=== PATIENT | female | born 1980 | race Caucasian/White ===

== ENCOUNTER 2016-10-01 21:11 | Observation (INO) | payer BC ==
[2016-10-01 23:44] LABS: ALANINE AMINOTRANSFERASE 53 Units/L (12-78); ALBUMIN 4.4 g/dL (3.4-5.0); ALKALINE PHOSPHATASE 46 Units/L (46-116); ASPARTATE AMINO TRANSFERASE 61 Units/L (15-37); BLOOD UREA NITROGEN 19 mg/dL (7-18); CARBON DIOXIDE 24.6 mmol/L (21-32); CHLORIDE 105 mmol/L (98-107); CREATININE 0.94 mg/dL (0.55-1.02); GLUCOSE 100 mg/dL (65-99); MAGNESIUM 2.2 mg/dL (1.7-2.9); SODIUM 141 mmol/L (136-145); TOTAL PROTEIN 7.8 g/dL (6.4-8.2); eGFR BLACK RACES > 60 (>60); eGFR NON BLACK RACES > 60 (>60)
[2016-10-01] MEDS: PROTONIX INJ 40 MG VIAL IVP SCH (23:50)
[2016-10-01] MEDS: NS 1000 ML 1,000 ML IV SCH (23:52)
[2016-10-01 23:57] LABS: CREATINE KINASE MB < 1.0 ng/mL (0-4.0); TROPONIN I < 0.02 ng/mL (0-1.5)
[2016-10-01 23:58] LABS: CKMB % 0.1 % (<4); CREATINE KINASE 2050 Units/L (26-192)
[2016-10-02 00:15] VITALS: BMI 29.1
[2016-10-02 06:15] LABS: BASOPHILS # (AUTO) 0.1 X10^3/uL (0.0-0.1); BASOPHILS % (AUTO) 1.1 % (0.2-1.0); EOSINOPHILS # (AUTO) 0.4 x10^3/uL (0.0-0.2); EOSINOPHILS % (AUTO) 6.1 % (0.9-2.9); HEMATOCRIT 35.4 % (36.0-47.0); HEMOGLOBIN 11.5 g/dL (12.0-16.0); LYMPHOCYTES # (AUTO) 2.2 X10^3/uL (1.3-2.9); LYMPHOCYTES % (AUTO) 35.1 % (21.0-51.0); MEAN CORPUSCULAR HEMOGLOBIN 25.3 pg (27.0-34.0); MEAN CORPUSCULAR HGB CONC 32.4 g/dL (33.0-35.0); MEAN CORPUSCULAR VOLUME 78.1 fL (80.0-100.0); MEAN PLATELET VOLUME 8.3 fL (7.4-11.0); MONOCYTES # (AUTO) 0.6 x10^3/uL (0.3-0.8); MONOCYTES % (AUTO) 9.2 % (0.0-13.0); NEUTROPHILS % (AUTO) 48.5 % (42.0-75.0); PLATELET COUNT 298 X10^3/uL (150.0-450.0); RED BLOOD COUNT 4.53 X10^6/uL (3.5-5.4); RED CELL DISTRIBUTION WIDTH 15.9 % (11.6-16.5); WHITE BLOOD COUNT 6.2 X10^3/uL (3.6-10.0)
--- NOTE | 2016-10-02 06:20 | RAD ---
HISTORY: Chest pain, shortness of breath Study: Chest one view Comparison: None Findings: The heart is within normal limits in size. The rodrigo are normal. The lungs are well inflated and free of acute alveolar infiltrates. There is a 1.1 x 1.6 centimeter nodular density in the right upper l obe for which further evaluation with chest CT is recommended. Neoplasm cannot be excluded. The erlin tyler of the lung tan are clear. The bony thorax is unremarkable. IMPRESSION: 1.1 x 1.6 centimeter right upper lobe nodule for which further evaluation with chest CT is recommend ed. Reported By:
[2016-10-02 06:37] LABS: BLOOD UREA NITROGEN 15 mg/dL (7-18); CALCIUM 8.5 mg/dL (8.5-10.1); CARBON DIOXIDE 25.5 mmol/L (21-32); CHLORIDE 108 mmol/L (98-107); CHOL/HDL RATIO 4.4 (0.0-5.0); CHOLESTEROL 208 mg/dL (0-200); CREATINE KINASE MB < 1.0 ng/mL (0-4.0); CREATININE 0.91 mg/dL (0.55-1.02); GLUCOSE 87 mg/dL (65-99); HDL CHOLESTEROL 47 mg/dL (40-60); SODIUM 143 mmol/L (136-145); TRIGLYCERIDES 71 mg/dL (0-150); TROPONIN I < 0.02 ng/mL (0-1.5); eGFR BLACK RACES > 60 (>60); eGFR NON BLACK RACES > 60 (>60)
[2016-10-02 06:41] LABS: CKMB % 0.1 % (<4); CREATINE KINASE 1442 Units/L (26-192)
[2016-10-02 07:16] LABS: HYPOCHROMASIA SLIGHT; PLATELET MORPHOLOGY COMMENT NORMAL (NORMAL)
[2016-10-02] MEDS: PROTONIX INJ 40 MG VIAL IVP SCH (08:42)
[2016-10-02] MEDS ORDERED: NS 100 ML IV 100 ML IV ONE (09:26)
--- NOTE | 2016-10-02 10:38 | CT ---
HISTORY: Chest pain, pulmonary AVM Study: CTA chest with contrast for pulmonary embolus Comparison: Plain films October 01, 2016 Technique: Axial post-contrast images with coronal, sagittal, and 3 dimensional maximum intensity pr ojection images obtained and evaluated. Dose reduction procedures were use with MA/kv adjusted for b jose size. Findings: There is no evidence for acute pulmonary thromboembolic disease. Examination of the mediastinum demo nstrated no evidence for mediastinal masses, lymphadenopathy, or hilar lymphadenopathy. No pleural e ffusions are identified. No chest wall or axillary abnormality is identified. Those portions of the upper abdominal organs visualized were within normal limits. Best visualized on series 5 axial image s 31 through 35 and series 12 coronal images 52 through 62 and sagittal series 13 image is 82 throug h 90 is a branching 2.8 by 1.4 by 1.4 centimeter mass (measured on series 5, image 34 and series 12, image 56) this corresponds to the lesion noted on the recent chest x-ray. The branching configurati on suggests the possibility of a bronchocoele, however, endobronchial neoplasm certainly cannot be e xcluded. The lesion does not enhance and is not definitely suggestive of an AVM as suggested in the history given however a thrombosed AVM could not be entirely excluded. Infection such as aspergillos is is also possible. Further evaluation could include a bronchoscopy and PET-CT. No other parenchyma l nodules, masses, alveolar infiltrates, bronchiectasis, or peribronchial thickening is identified. IMPRESSION: 2.8 x 1.4 x 1.4 centimeter branching mass lesion in the right upper lobe as described. This correspo nds to the recent plain film findings. Some differential diagnostic possibilities and recommendation s for further evaluation given above No evidence for acute pulmonary thromboembolic disease Reported By:
[2016-10-02 11:00] LABS: CREATINE KINASE MB < 1.0 ng/mL (0-4.0); TROPONIN I < 0.02 ng/mL (0-1.5)
[2016-10-02 11:03] LABS: CKMB % 0.1 % (<4); CREATINE KINASE 1271 Units/L (26-192)
[2016-10-02] MEDS: NS 1000 ML 1,000 ML IV SCH (12:42)
--- NOTE | 2016-10-02 13:06 | DR.H&P ---
H&P - History & Physical for Day of: H&P Date: 10/02/16 - Chief Complaint Chief Complaint: Chest pain and SOB - Allergies Allergies/Adverse Reactions: Allergies Allergy/AdvReac Type Severity Reaction Status Date / Time No Known Drug Allergy Allergy Verified 10/01/16 23:22 - History of Present Illness History of Present Illness: The patient is a 36yo WF who has had complaints of chest pain 8/10 x 2 days. Is having SOB as well. States pain started during night. 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 Is not on OCP. - Past Medical History Additional Medical History: Pulmonary AVM - Family History Family Medical History: Diabetes Mellitus, Cancer, [place], Heart Failure, Hypertension - Social History Does patient currently use any type of tobacco product: No Have you used tobacco products in the last 12 months: No Type of Tobacco Use: None How many years tobacco product used: 25 Alcohol Use: None Drug Use: None - Medications Home Medications: Metoprolol Succinate Ext Rel [Toprol Xl] 50 mg PO DAILY 10/02/16 [History Confirmed 10/02/16] - Review of Systems Constitutional: No Symptoms Reported Eyes: No Symptoms Reported ENT: No Symptoms Reported Respiratory: Shortness of Breath, SOB with Excertion Cardiovascular: Chest Pain Gastrointestinal: No Symptoms Reported Genitourinary: No Symptoms Reported Musculoskeletal: No Symptoms Reported Skin: No Symptoms Reported Neurological: No Symptoms Reported - Physical Exam Vital Signs: Temperature 97.0 F Pulse Rate [Right Radial] 72 Respiratory Rate 18 Blood Pressure [Left Arm] 104/63 Blood Pressure [Right Arm] 131/79 O2 Sat by Pulse Oximetry 95 Oriented: Normal Eyes: Normal Ear: Normal Nose: Normal Throat: Normal Respiratory: Clear Throughout Cardiovascular: Normal : Normal Auscultation: Bowel Sounds: Normal Palpation: Normal Tenderness: Normal Skin: Normal Musculoskeletal: Normal Psychiatric: Normal Mood Description: Calm Affect: Normal Speech Pattern: Clear - Assessment/Plan (1) Chest pain Qualifiers: Chest pain type: C Ischemic chest pain type: I Status: Acute Plan: Cardiac Enzymes, EKGs, CTA of Chest. See EMR for orders. (2) SOB (shortness of breath) Status: Acute Plan: Cardiac Enzymes, EKGs, CTA of Chest. See EMR for orders. (3) Pulmonary arteriovenous malformation Status: Acute Plan: Cardiac Enzymes, EKGs, CTA of Chest. See EMR for orders.
--- NOTE | 2016-10-02 16:29 | PCM.PROG ---
Progress Note - Progress Note for Day of Date: 10/02/16 - Subjective Subjective: patient has no complaints. Resting quietly in bed. NPO this a.m. for CTA - Past Medical Family Social History Past Med/Fam/Surg Hx: No changes since H&P Allergies: Allergies No Known Drug Allergy Allergy (Verified 10/01/16 23:22) - Review of Systems ROS: No change since H&P - Vital Signs and I&O's Vital Signs: Temperature 97.0 F Pulse Rate [Right Radial] 72 Respiratory Rate 18 Blood Pressure [Left Arm] 104/63 Blood Pressure [Right Arm] 131/79 O2 Sat by Pulse Oximetry 95 Intake and Output: Intake & Output 09/30/16 10/01/16 10/02/16 10/03/16 11:59 11:59 11:59 11:59 Intake Total 0 600 Balance 0 600 - Physical Exam Oriented: Normal Eyes: Normal Ear: Normal Nose: Normal Throat: Normal Respiratory: Normal Cardiovascular: Normal : Normal Auscultation: Bowel Sounds: Normal Tenderness: Normal Skin: Normal Musculoskeletal: Normal Psychiatric: Normal Mood Description: Calm Affect: Normal Speech Pattern: Clear, Appropriate - Laboratory and Diagnostics Result Diagrams: 10/02/16 05:15 10/02/16 05:15 Labs: Laboratory WBC 6.2 X10^3/uL (3.6-10.0) 10/02/16 05:15 RBC 4.53 X10^6/uL (3.5-5.4) 10/02/16 05:15 Hgb 11.5 g/dL (12.0-16.0) L 10/02/16 05:15 Hct 35.4 % (36.0-47.0) L 10/02/16 05:15 MCV 78.1 fL (80.0-100.0) L 10/02/16 05:15 MCH 25.3 pg (27.0-34.0) L 10/02/16 05:15 MCHC 32.4 g/dL (33.0-35.0) L 10/02/16 05:15 RDW 15.9 % (11.6-16.5) 10/02/16 05:15 Plt Count 298 X10^3/uL (150.0-450.0) 10/02/16 05:15 Plt Count Comment Adequate (ADEQUATE) 10/02/16 05:15 MPV 8.3 fL (7.4-11.0) 10/02/16 05:15 Neut % 48.5 % (42.0-75.0) 10/02/16 05:15 Lymph % 35.1 % (21.0-51.0) 10/02/16 05:15 Parker % 9.2 % (0.0-13.0) 10/02/16 05:15 Eos % 6.1 % (0.9-2.9) H 10/02/16 05:15 Baso % 1.1 % (0.2-1.0) H 10/02/16 05:15 Neut # 3.0 x10^3/uL (2.2-4.8) 10/02/16 05:15 Lymph # 2.2 X10^3/uL (1.3-2.9) 10/02/16 05:15 Parker # 0.6 x10^3/uL (0.3-0.8) 10/02/16 05:15 Eos # 0.4 x10^3/uL (0.0-0.2) H 10/02/16 05:15 Baso # 0.1 X10^3/uL (0.0-0.1) 10/02/16 05:15 Absolute Nucleated RBC 0.1 /100WBC 10/02/16 05:15 Plt Morphology Comment Normal (NORMAL) 10/02/16 05:15 RBC Morphology Abnormal (NORMAL) A 10/02/16 05:15 Hypochromasia Slight A 10/02/16 05:15 INR Target Range - 10/01/16 23:15 INR 1.02 (0.8-1.3) 10/01/16 23:15 PTT 28.2 SECONDS (22.9-36.5) 10/01/16 23:15 PTT Comment - 10/01/16 23:15 D-Dimer 102 ng/mL (0-400) 10/02/16 10:15 Sodium 143 mmol/L (136-145) 10/02/16 05:15 Corrected Sodium TNP 10/02/16 05:15 Potassium 4.1 mmol/L (3.5-5.1) 10/02/16 05:15 Chloride 108 mmol/L (98-107) H 10/02/16 05:15 Carbon Dioxide 25.5 mmol/L (21-32) 10/02/16 05:15 BUN 15 mg/dL (7-18) 10/02/16 05:15 Creatinine 0.91 mg/dL (0.55-1.02) 10/02/16 05:15 Est GFR (MDRD) Af Amer > 60 (>60) 10/02/16 05:15 Est GFR (MDRD) Non-Af > 60 (>60) 10/02/16 05:15 Glucose 87 mg/dL (65-99) 10/02/16 05:15 Calcium 8.5 mg/dL (8.5-10.1) 10/02/16 05:15 Corrected Calcium TNP 10/01/16 23:15 Magnesium 2.2 mg/dL (1.7-2.9) 10/01/16 23:15 Total Bilirubin 0.20 mg/dL (0.2-1.0) 10/01/16 23:15 AST 61 Units/L (15-37) H 10/01/16 23:15 ALT 53 Units/L (12-78) 10/01/16 23:15 Alkaline Phosphatase 46 Units/L (46-116) 10/01/16 23:15 Creatine Kinase 1271 Units/L (26-192) H 10/02/16 10:15 CK-MB (CK-2) < 1.0 ng/mL (0-4.0) 10/02/16 10:15 CK/CKMB % Calc 0.1 % (<4) 10/02/16 10:15 Troponin I < 0.02 ng/mL (0-1.5) 10/02/16 10:15 Total Protein 7.8 g/dL (6.4-8.2) 10/01/16 23:15 Albumin 4.4 g/dL (3.4-5.0) 10/01/16 23:15 Globulin 3.4 g/dL (2.5-4.5) 10/01/16 23:15 Albumin/Globulin Ratio 1.3 Ratio (1.1-2.1) 10/01/16 23:15 Triglycerides 71 mg/dL (0-150) 10/02/16 05:15 Cholesterol 208 mg/dL (0-200) H 10/02/16 05:15 LDL Cholesterol, Calc 147 mg/dL (0-100) H 10/02/16 05:15 HDL Cholesterol 47 mg/dL (40-60) 10/02/16 05:15 Cholesterol/HDL Ratio 4.4 (0.0-5.0) 10/02/16 05:15 - Plan (1) Chest pain Status: Acute Qualifiers: Chest pain type: C Ischemic chest pain type: I Plan: abnormal CXR, PT FASTING THIS AM FOR CTA CHEST. SERIAL EKG'S CE STABLE (2) Pulmonary arteriovenous malformation Status: Acute (3) SOB (shortness of breath) Status: Acute
[2016-10-02 17:13] VITALS: BP 106/59
[2016-10-02] MEDS ORDERED: TYLENOL 325 MG TAB PO PRN (17:36)
== END 2016-10-02 18:35 | disposition home or self-care (01) ==
LOC: OBS 21:11 → MED/SURG 10-02 15:29
PROVIDERS: ADMIT Internal Medicine; ATTEND Internal Medicine
DX: R07.89 Other chest pain (principal); R06.02 Shortness of breath; I10 Essential (primary) hypertension; E11.65 Type 2 diabetes mellitus with hyperglycemia; Q25.72 Congenital pulmonary arteriovenous malformation; D64.89 Other specified anemias; R74.8 Abnormal levels of other serum enzymes
CPT/HCPCS: 36415; 71010; 71275; 80048; 80053; 80061; 82550; 82553; 83735; 84484; 85025; 85378; 85610; 85730; 93005; 93010; 94760; A4216; A4222; C9113; G0378

== ENCOUNTER 2017-01-18 09:44 | Observation (INO) | payer BC ==
[2017-01-18] MEDS ORDERED: MORPHINE SULFATE INJ 2 MG IVP PRN (11:18)
[2017-01-18 11:26] VITALS: BMI 31.9
[2017-01-18 11:59] LABS: BASOPHILS # (AUTO) 0.1 X10^3/uL (0.0-0.1); BASOPHILS % (AUTO) 1.3 % (0.2-1.0); EOSINOPHILS # (AUTO) 0.1 x10^3/uL (0.0-0.2); EOSINOPHILS % (AUTO) 2.1 % (0.9-2.9); HEMATOCRIT 33.6 % (36.0-47.0); HEMOGLOBIN 10.8 g/dL (12.0-16.0); LYMPHOCYTES # (AUTO) 2.1 X10^3/uL (1.3-2.9); LYMPHOCYTES % (AUTO) 33.7 % (21.0-51.0); MEAN CORPUSCULAR HEMOGLOBIN 24.4 pg (27.0-34.0); MEAN CORPUSCULAR HGB CONC 32.2 g/dL (33.0-35.0); MEAN CORPUSCULAR VOLUME 75.9 fL (80.0-100.0); MEAN PLATELET VOLUME 7.9 fL (7.4-11.0); MONOCYTES # (AUTO) 0.5 x10^3/uL (0.3-0.8); MONOCYTES % (AUTO) 7.3 % (0.0-13.0); NEUTROPHILS # (AUTO) 3.5 x10^3/uL (2.2-4.8); NEUTROPHILS % (AUTO) 55.6 % (42.0-75.0); PLATELET COUNT 303 X10^3/uL (150.0-450.0); RED BLOOD COUNT 4.42 X10^6/uL (3.5-5.4); RED CELL DISTRIBUTION WIDTH 16.5 % (11.6-16.5); WHITE BLOOD COUNT 6.2 X10^3/uL (3.6-10.0)
[2017-01-18 12:08] LABS: HYPOCHROMASIA SLIGHT; PLATELET MORPHOLOGY COMMENT NORMAL (NORMAL)
[2017-01-18 12:24] LABS: ALANINE AMINOTRANSFERASE 17 Units/L (12-78); ALBUMIN 3.6 g/dL (3.4-5.0); ALKALINE PHOSPHATASE 37 Units/L (46-116); ASPARTATE AMINO TRANSFERASE 12 Units/L (15-37); BLOOD UREA NITROGEN 16 mg/dL (7-18); CALCIUM 7.9 mg/dL (8.5-10.1); CARBON DIOXIDE 28.9 mmol/L (21-32); CHLORIDE 109 mmol/L (98-107); CKMB % 1.6 % (<4); CREATINE KINASE 64 Units/L (26-192); CREATINE KINASE MB < 1.0 ng/mL (0-4.0); CREATININE 0.86 mg/dL (0.55-1.02); GLUCOSE 88 mg/dL (65-99); SODIUM 142 mmol/L (136-145); TOTAL PROTEIN 6.7 g/dL (6.4-8.2); TROPONIN I < 0.02 ng/mL (0-1.5); eGFR BLACK RACES > 60 (>60); eGFR NON BLACK RACES > 60 (>60)
--- NOTE | 2017-01-18 12:24 | DR.H&P ---
H&P - History & Physical for Day of: H&P Date: 01/18/17 - Chief Complaint Chief Complaint: Chest Pain - Allergies Allergies/Adverse Reactions: Allergies Allergy/AdvReac Type Severity Reaction Status Date / Time No Known Drug Allergies Allergy Verified 01/18/17 10:54 - History of Present Illness History of Present Illness: The patient is a 36-year-old white female who presented to the [facility] emergency room with complaints of chest pain. Complains of having pressure. Patient did have an unremarkable EKG per the ED physician. Patient initial pain was on a 7 out of 10 and did improve to 4 out of 10 with IV morphine. Patient does have a history on a pulmonary AVM. The patient was subsequently transferred to [facility] for further evaluation and management. - Past Medical History Additional Medical History: Pulmonary AVM - Past Surgical History Surgical History: Other - Family History Family Medical History: Diabetes Mellitus, Cancer, [place], Heart Failure, Hypertension - Social History Does patient currently use any type of tobacco product: No Have you used tobacco products in the last 12 months: No Type of Tobacco Use: Cigarettes Does any household member use tobacco: No Alcohol Use: None Drug Use: None - Review of Systems Constitutional: Weakness Eyes: No Symptoms Reported ENT: No Symptoms Reported Respiratory: Shortness of Breath Cardiovascular: Chest Pain, Palpitations Gastrointestinal: No Symptoms Reported Genitourinary: No Symptoms Reported Musculoskeletal: No Symptoms Reported Skin: No Symptoms Reported Neurological: No Symptoms Reported - Physical Exam Vital Signs: Temperature 98.1 F Pulse Rate [Left Brachial] 64 Respiratory Rate 15 Blood Pressure [Left Arm] 122/79 Blood Pressure [Right Arm] 106/59 Blood Pressure 106/59 O2 Sat by Pulse Oximetry 97 Oriented: Normal Eyes: Normal Ear: Normal Nose: Normal Throat: Normal Respiratory: Clear Throughout Cardiovascular: Normal : Normal Auscultation: Bowel Sounds: Normal Palpation: Normal Tenderness: Normal Skin: Normal Musculoskeletal: Normal Psychiatric: Normal Mood Description: Calm Affect: Normal Speech Pattern: Clear - Assessment/Plan (1) Chest pain Qualifiers: Chest pain type: C Ischemic chest pain type: I Status: Acute Plan: Serial cardiacs, EKGs, Telemetry. Labs. (2) Pulmonary arteriovenous malformation Status: Acute Plan: Monitor Sats, Labs, CXR (3) SOB (shortness of breath) Status: Acute Plan: Labs, Ekgs
[2017-01-18 12:25] LABS: BILIRUBIN,URINE NEGATIVE (NEGATIVE); BLOOD/HEMOGLOBIN,URINE NEGATIVE (NEGATIVE); GLUCOSE, URINE NEGATIVE (NEGATIVE); KETONES,URINE NEGATIVE (NEGATIVE); LEUKOCYTE ESTERASE ,URINE 1+ (NEGATIVE); NITRITES,URINE NEGATIVE (NEGATIVE); PROTEIN,URINE NEGATIVE (NEGATIVE); UROBILINOGEN,URINE NORMAL (NORMAL)
[2017-01-18 12:32] LABS: APPEARANCE,URINE CLEAR (CLEAR); BACTERIA,URINE NEGATIVE /HPF (NEGATIVE); COLOR,URINE YELLOW (YELLOW); MUCUS,URINE FEW /HPF (NEGATIVE); RBC,URINE 0-1 /HPF (NEGATIVE); SQUAMOUS EPITHELIAL CELL,UR FEW /HPF (NEGATIVE)
[2017-01-18] MEDS ORDERED: NS 100 ML IV 100 ML IV ONE (16:14)
--- NOTE | 2017-01-18 17:24 | CT ---
HISTORY: Chest pain. Study: CT chest with contrast. Dose reduction techniques including Automated Exposure Control (AEC) and adjustment of mA and kV were utlized. Comparison: Chest x-ray performed earlier the same day. Chest CT dated October 02, 2016. Technique: Multiple axial images of the chest were obtained from the thoracic inlet to the upper abd omen after the administration of IV contrast. MIP images in the sagittal and coronal planes were per formed. Findings: There are no filling defects through the subsegmental pulmonary artery level bilaterally. More distal emboli are not excluded. The main pulmonary artery is normal in size. The heart is betty l in size without pericardial effusion or evidence of right heart strain. The thoracic aorta is norm al in contour without aneurysmal dilatation. There is no mediastinal or hilar lymphadenopathy based on size criteria. The included portions of the upper abdomen are grossly unremarkable. The bony stru ctures are grossly intact. Evaluation of the lung parenchyma demonstrates a relatively unchanged 3.0 x 1.5 x 1.5 cm mass in the posterior right upper lobe. The remainder of the lungs are clear without focal consolidation, pleural effusion or pneumothorax. IMPRESSION: 1. No evidence of acute pulmonary thromboembolic disease through the subsegmental pulmonary artery level bilaterally. More distal emboli are not excluded. 2. Relatively unchanged and nonspecific 3.0 x 1.5 x 1.5 cm mass in the posterior right upper lobe. P ulmonary referral is recommended if not already obtained. PET-CT could be considered on an outpatien t basis for further evaluation if clinically indicated. Reported By:
[2017-01-18] MEDS: NS 1000 ML 1,000 ML IV SCH ×2 (17:57)
[2017-01-18 19:13] LABS: CKMB % 1.4 % (<4); CREATINE KINASE 72 Units/L (26-192); CREATINE KINASE MB < 1.0 ng/mL (0-4.0); TROPONIN I < 0.02 ng/mL (0-1.5)
[2017-01-19 00:35] LABS: CKMB % 1.8 % (<4); CREATINE KINASE 56 Units/L (26-192); CREATINE KINASE MB < 1.0 ng/mL (0-4.0); TROPONIN I < 0.02 ng/mL (0-1.5)
[2017-01-19] MEDS: NS 1000 ML 1,000 ML IV SCH (04:33)
[2017-01-19] MEDS ORDERED: TYLENOL 325 MG TAB PO ONE (04:36)
[2017-01-19] MEDS ORDERED: TYLENOL 325 MG TAB PO PRN (04:39)
[2017-01-19 06:05] LABS: ALANINE AMINOTRANSFERASE 15 Units/L (12-78); ALBUMIN 3.1 g/dL (3.4-5.0); ALKALINE PHOSPHATASE 36 Units/L (46-116); ASPARTATE AMINO TRANSFERASE 8 Units/L (15-37); BLOOD UREA NITROGEN 13 mg/dL (7-18); CALCIUM 7.5 mg/dL (8.5-10.1); CARBON DIOXIDE 24.1 mmol/L (21-32); CHLORIDE 110 mmol/L (98-107); COR CA(FOR HYPOALB) 8.2 mg/dL (8.5-10.1); CREATININE 0.88 mg/dL (0.55-1.02); GLUCOSE 110 mg/dL (65-99); SODIUM 142 mmol/L (136-145); eGFR BLACK RACES > 60 (>60); eGFR NON BLACK RACES > 60 (>60)
[2017-01-19 06:06] LABS: BASOPHILS # (AUTO) 0.1 X10^3/uL (0.0-0.1); BASOPHILS % (AUTO) 1.6 % (0.2-1.0); EOSINOPHILS # (AUTO) 0.5 x10^3/uL (0.0-0.2); EOSINOPHILS % (AUTO) 7.3 % (0.9-2.9); HEMATOCRIT 33.4 % (36.0-47.0); HEMOGLOBIN 10.9 g/dL (12.0-16.0); LYMPHOCYTES # (AUTO) 2.3 X10^3/uL (1.3-2.9); LYMPHOCYTES % (AUTO) 36.8 % (21.0-51.0); MEAN CORPUSCULAR HEMOGLOBIN 24.8 pg (27.0-34.0); MEAN CORPUSCULAR HGB CONC 32.6 g/dL (33.0-35.0); MEAN CORPUSCULAR VOLUME 75.9 fL (80.0-100.0); MEAN PLATELET VOLUME 8.2 fL (7.4-11.0); MONOCYTES # (AUTO) 0.5 x10^3/uL (0.3-0.8); MONOCYTES % (AUTO) 8.3 % (0.0-13.0); NEUTROPHILS # (AUTO) 2.9 x10^3/uL (2.2-4.8); PLATELET COUNT 296 X10^3/uL (150.0-450.0); RED CELL DISTRIBUTION WIDTH 16.5 % (11.6-16.5); WHITE BLOOD COUNT 6.3 X10^3/uL (3.6-10.0)
[2017-01-19 06:39] LABS: PLATELET MORPHOLOGY COMMENT NORMAL (NORMAL)
[2017-01-19] MEDS ORDERED: NS 1000 ML 1,000 ML IV SCH (07:00)
[2017-01-19] MEDS ORDERED: TOPROL XL PO SCH (09:00)
[2017-01-19] MEDS ORDERED: PERCOCET TAB 5/325 MG PO STA (09:09)
[2017-01-19 13:15] VITALS: BP 113/75
[2017-01-19] MEDS ORDERED: COLACE CAP 100 MG PO SCH (21:00)
== END 2017-01-19 14:30 | disposition home or self-care (01) ==
LOC: UNDOADMOB 09:44 → ICU 09:44
PROVIDERS: ADMIT Internal Medicine; ATTEND Internal Medicine
DX: R07.89 Other chest pain (principal); R06.02 Shortness of breath; D64.89 Other specified anemias; Q25.72 Congenital pulmonary arteriovenous malformation; R91.8 Other nonspecific abnormal finding of lung field; K21.9 Gastro-esophageal reflux disease without esophagitis; R51 Headache
CPT/HCPCS: 36415; 71275; 80053; 81001; 82550; 82553; 84484; 85025; 87086; 93005; 93010; A4222; G0378